=== PATIENT | female | born 1975 | race Caucasian/White ===

== ENCOUNTER 2018-02-12 17:49 | Emergency (ER) | payer BC ==
[~2018-02-12] VITALS: Ht 162.6 cm; Wt 116.8 kg
[2018-02-12 18:28] VITALS: Ht 162.6 cm; Wt 116.8 kg
[2018-02-12] MEDS ORDERED: SOMA350 MG PO (18:30)
[2018-02-12] MEDS ORDERED: BYSTOLIC5 MG PO (18:30)
[2018-02-12] MEDS ORDERED: GEMFIBROZIL600 MG PO (18:30)
[2018-02-12] MEDS ORDERED: PRAVASTATIN SOD10 MG PO (18:30)
[2018-02-12] MEDS ORDERED: AROMASIN25 MG PO (18:32)
[2018-02-12] MEDS ORDERED: GABAPENTIN100 MG PO (18:33)
[2018-02-12] MEDS ORDERED: GLUCOPHAGE500 MG PO (18:33)
[2018-02-12] MEDS ORDERED: GLUCOTROL 5 MG T5 MG PO (18:33)
[2018-02-12] MEDS ORDERED: SYNTHROID125 MCG PO (18:33)
[2018-02-12] MEDS ORDERED: CELEXA20 MG PO (18:34)
[2018-02-12] MEDS ORDERED: CALAN SR240 MG PO (18:34)
[2018-02-12 19:29] LABS: APPEARANCE HAZY (CLEAR); BILIRUBIN NEGATIVE (NEGATIVE); COLOR YELLOW (YELLOW); GLUCOSE 100 mg/dL (NEGATIVE); KETONE SMALL mg/dL (NEGATIVE); NITRITE NEGATIVE (NEGATIVE); PROTEIN TRACE mg/dL (NEGATIVE); SPECIFIC GRAVITY 1.025 (1.005-1.020); UROBILINOGEN NORMAL (NORMAL)
[2018-02-12 19:30] LABS: BACTERIA MANY /hpf (NONE SEEN); MUCUS <1+ /lpf (NONE SEEN); RED CELLS - URINE 0-5 /hpf (0-5)
[2018-02-12 19:30] LABS: BASOPHILS 0.2 % (0-2); HEMOGLOBIN 13.6 g/dL (12-16); IMMATURE GRANULOCYTES 0.3 % (0-5); MCH 30.3 pg (26.0-34.0); MCHC 33.2 g/dL (31.0-37.0); MCV 91.3 fL (80.0-100.0); MEAN PLATELET VOLUME 10.3 fL (7.4-10.4); MONOCYTES 4.2 % (2-11); NEUTROPHILS 57.3 % (40-80); PLATELET COUNT 183 10x3/uL (130-400); RBC 4.49 10x6/uL (4.00-5.40); RDW 13.5 % (11.5-14.5); WBC 9.6 10x3/uL (4.8-10.8)
[2018-02-12 19:54] LABS: ALBUMIN 3.3 g/dL (3.4-5.0); ALKALINE PHOSPHATASE 54 U/L (46-116); ALT (SGPT) 26 U/L (10-68); BILIRUBIN - TOTAL 0.21 mg/dL (0.2-1.3); CALC OSMOLALITY 285 mosm/kg (275-300); CALCIUM 8.9 mg/dL (8.5-10.1); CARBON DIOXIDE 26.3 mmol/L (21.0-32.0); CHLORIDE - SERUM 105 mmol/L (98-107); CREATININE - SERUM 0.7 mg/dL (0.6-1.3); GLUCOSE 221 mg/dL (74-106); POTASSIUM - SERUM 3.6 mmol/L (3.5-5.1); PROTEIN - SERUM 7.3 g/dL (6.4-8.2); SODIUM 140 mmol/L (136-145); UREA NITROGEN 12 mg/dL (7-18); eGFR NON AFRICAN AMERICAN > 90 mL/min (90-120)
[2018-02-12] MEDS ORDERED: MACROBID100 MG PO (20:22)
[2018-02-12 20:47] VITALS: BP 165/96
== END 2018-02-12 20:47 | disposition home or self-care (01) ==
LOC: D.ER 17:49
PROVIDERS: Family Medicine
DX: S22.089A Unspecified fracture of T11-T12 vertebra, initial encounter for closed fracture (principal); W18.30XA Fall on same level, unspecified, initial encounter; Y93.89 Activity, other specified; Y92.019 Unspecified place in single-family (private) house as the place of occurrence of the external cause; E11.9 Type 2 diabetes mellitus without complications; Z85.3 Personal history of malignant neoplasm of breast; Z90.11 Acquired absence of right breast and nipple; I10 Essential (primary) hypertension; M54.5 Low back pain; N39.0 Urinary tract infection, site not specified; F17.200 Nicotine dependence, unspecified, uncomplicated